=== PATIENT | female | born 1985 | race Two or more races ===

== ENCOUNTER 2024-02-11 23:39 | Emergency (ER) | payer MEDICAID, OTHER ==
[~2024-02-11] VITALS: Ht 144.8 cm; Wt 57.2 kg
--- NOTE | 2024-02-12 01:01 | DVH ---
XY R FOOT 3 VIEW XRAY, INDICATION: pain TECHNICAL DATA: Frontal, oblique and lateral views were obtained of the right foot. COMPARISON: None Findings/ IMPRESSION: Possible nondisplaced fracture involving the 3rd digit proximal phalanx. Correlation with carlos burch recommended.
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
[2024-02-12 02:42] VITALS: BP 124/76; TEMP 98.4
[2024-02-12 02:49] VITALS: PULSE 96; RESP 16; O2SAT 98
== END 2024-02-12 02:50 | disposition home or self-care (01) ==
LOC: ER 23:39
DX: S92.501A Displaced unspecified fracture of right lesser toe(s), initial encounter for closed fracture (principal); W19.XXXA Unspecified fall, initial encounter; Y93.89 Activity, other specified; Y92.89 Other specified places as the place of occurrence of the external cause; Y99.8 Other external cause status
CPT/HCPCS: 73630